=== PATIENT | female | born 1995 | race Caucasian/White ===

== ENCOUNTER 2020-04-19 10:48 | Emergency (ER) | payer BC ==
--- NOTE | 2020-04-19 11:03 | ER Document Report ---
ED Medical Screen (RME) - General Chief Complaint: Vag Bleeding, +preg <12wks Stated Complaint: ABDOMINAL PAIN/BLEEDING/ 15 WKS Time Seen by Provider: 04/19/20 10:58 Primary Care Provider: NANCY WINSLOW NP [Primary Care Provider] - Follow up as needed Mode of Arrival: Ambulatory Information source: Patient Notes: 24-year-old female presented to ED for subchorionic hemorrhage urine. She states she has had a subchorionic hematoma for the last 2 months. She is about 15 weeks 6 days per 1 para 0. She states she has been bleeding dark blood since this started 2 months ago but today it is a brighter color and she is more concerned. She states she is also having cramping. We will get blood urine and a new transvaginal ultrasound. Patient is alert oriented respirations regular nonlabored speaking in full sentences. I have greeted and performed a rapid initial assessment of this patient. A comprehensive ED assessment and evaluation of the patient, analysis of test results and completion of medical decision making process will be conducted by an additional ED providers. Physical Exam - Vital signs Vitals: Temp Pulse Resp BP Pulse Ox 98.0 F 87 18 125/75 97 04/19/20 10:53 04/19/20 10:53 04/19/20 10:53 04/19/20 10:53 04/19/20 10:53 Course - Vital Signs Vital signs: Temp Pulse Resp BP Pulse Ox 98.0 F 87 18 125/75 97 04/19/20 10:53 04/19/20 10:53 04/19/20 10:53 04/19/20 10:53 04/19/20 10:53 Doctor's Discharge - Discharge Referrals: NANCY WINSLOW NP [Primary Care Provider] - Follow up as needed
--- NOTE | 2020-04-19 11:25 | ER Document Report ---
ED GI/ - General Chief Complaint: Vaginal Bleeding Stated Complaint: ABDOMINAL PAIN/BLEEDING/ 15 WKS Time Seen by Provider: 04/19/20 10:58 Primary Care Provider: NANCY WINSLOW NP [Primary Care Provider] - Follow up as needed Mode of Arrival: Ambulatory Notes: HPI: 24-year-old female G1, P0 at 16 weeks by ultrasound who presents with 1 2 months of some intermittent vaginal bleeding. She was personally seen and evaluated at [facility] x2. She was told that she had a Vlad subchorionic hemorrhage. Patient states she started to have some cramping in the suprapubic region yesterday with no aggravating or relieving factors. No radiation. She states some bright red vaginal bleeding today without clots. No dysuria or fevers. She denies any lightheadedness or dizziness. ROS: See HPI All other review of systems reviewed and otherwise negative Reviewed vital signs and nursing note as charted by RN. PHYSICAL EXAM: CONSTITUTIONAL: Alert and oriented and responds appropriately to questions. Well-appearing; well-nourished HEAD: Normocephalic; atraumatic EYES: Clear is not pale ENT: Normal nose; no rhinorrhea; moist mucous membranes; pharynx without lesions noted NECK: Supple without meningismus; non-tender; no cervical lymphadenopathy, no masses CARD: Regular rate and rhythm; no murmurs; symmetric distal pulses RESP: Normal chest excursion without splinting or tachypnea; breath sounds clear and equal bilaterally ABD/GI: Normal bowel sounds; nontender to deep palpation of all 4 quadrants of the abdomen; no palpable masses. Elevated BMI BACK: The back appears normal and is non-tender to palpation EXT: Normal ROM in all joints; non-tender to palpation; no edema SKIN: No acute lesions noted NEURO: CN 2-12 intact; 5/5 bilateral upper and lower extremity strength with sensation intact to light touch PSYCH: The patient's mood and manner are appropriate. Grooming and personal hygiene are appropriate. - Related Data Allergies/Adverse Reactions: No Known Allergies Allergy (Verified 04/19/20 11:07) Past Medical History - General Information source: Patient - Social History Smoking Status: Never Smoker Family History: Reviewed & Not Pertinent Physical Exam - Vital signs Vitals: Temp Pulse Resp BP Pulse Ox 98.0 F 87 18 125/75 97 04/19/20 10:53 04/19/20 10:53 04/19/20 10:53 04/19/20 10:53 04/19/20 10:53 Course - Re-evaluation Re-evalutation: 04/19/20 11:25 Given the above history and physical we will obtain a RhoGam evaluation as well as a transvaginal ultrasound, hemoglobin level, urine, quantitative hCG. I would like to evaluate for the possibility of ectopic , molar , intrauterine demise, or with normal vaginal bleeding. 04/19/20 13:25 Labs as recorded. Patient is a be positive. IUP on ultrasound. No lightheadedness or dizziness. Hemoglobin is stable. I did call the covering SURVEY MANAGER for the patient's group who states he will see the patient in the clinic in a week. - Vital Signs Vital signs: Temp Pulse Resp BP Pulse Ox 98.0 F 87 18 125/75 97 04/19/20 10:53 04/19/20 10:53 04/19/20 10:53 04/19/20 10:53 04/19/20 10:53 - Laboratory Result Diagrams: 04/19/20 11:46 04/19/20 11:46 Laboratory results interpreted by me: 04/19/20 04/19/20 11:46 11:46 Sodium 136.3 L BUN 4 L Creatinine 0.42 L Beta HCG, Quant 40394.00 H Urine Blood LARGE H Urine Urobilinogen 2.0 H Discharge - Discharge Clinical Impression: Vaginal bleeding affecting early Condition: Good Disposition: HOME, SELF-CARE Additional Instructions: Come back immediately for any pain, excessive bleeding, lightheadedness or dizziness, fevers or vomiting, or any other acute problems. Please follow-up with the SURVEY MANAGER in 1 week as discussed. Referrals: NANCY WINSLOW, YEFRI [Primary Care Provider] - Follow up as needed
[2020-04-19 12:12] LABS: ABSOLUTE LYMPHOCYTES (AUTO) 1.8 10^3/uL (0.5-4.7); ABSOLUTE MONOCYTES (AUTO) 0.5 10^3/uL (0.1-1.4); APPEARANCE,URINE CLEAR; BASOPHILS % (AUTO) 0.3 % (0-2); BILIRUBIN,URINE NEGATIVE (NEGATIVE); COLOR,URINE YELLOW; EOSINOPHILS % (AUTO) 0.2 % (0-6); GLUCOSE, URINE NEGATIVE (NEGATIVE); HEMATOCRIT 37.2 % (36.0-47.0); HEMOGLOBIN 13.1 g/dL (12.0-15.5); KETONES,URINE NEGATIVE (NEGATIVE); LEUKOCYTE ESTERASE,URINE NEGATIVE (NEGATIVE); LYMPHOCYTES % (AUTO) 24.1 % (13-45); MEAN CORPUSCULAR HEMOGLOBIN 30.6 pg (27.0-33.4); MEAN CORPUSCULAR HGB CONC 35.3 g/dL (32.0-36.0); MEAN CORPUSCULAR VOLUME 87 fl (80-97); MONOCYTES % (AUTO) 6.8 % (3-13); NITRITE,URINE NEGATIVE (NEGATIVE); PLATELET COUNT 163 10^3/uL (150-450); PROTEIN,URINE NEGATIVE (NEGATIVE); RED BLOOD COUNT 4.29 10^6/uL (3.72-5.28); RED CELL DISTRIBUTION WIDTH 13.4 % (11.5-14.0); SEGMENTED NEUTROPHILS % (AUTO) 68.6 % (42-78); TOTAL CELLS COUNTED % (AUTO) 100 %; URINE SPECIFIC GRAVITY 1.013; WHITE BLOOD COUNT 7.3 10^3/uL (4.0-10.5)
--- NOTE | 2020-04-19 12:36 | RADIOLOGY REPORT (SQ) ---
EXAM DESCRIPTION: U/S OB 14+ TRNABD 1GES W/O DOP IMAGES COMPLETED DATE/TIME: 04/19/2020 10:49 am REASON FOR STUDY: History subchorionic bleed vaginal bleeding crampi COMPARISON: None. TECHNIQUE: Static and Dynamic grayscale imaging performed of gravid uterus using transabdominal appr oach. Additional selected color Doppler and spectral images recorded. All stored on PACS. LIMITATIONS: None. FINDINGS: FETUSES SEEN:1 EGA: 16 weeks 0 days Calculated using BPD,FL,HC,AC documented on images. No discrepancy with clinica l dates. ABEL: 10/04/2020 EFW: 139 g +/-20 1 g PERCENTILE: 53rd percentile LVP: 2.6 cm PLACENTA: Anterior, normal appearance. No evidence of abruption. GRADE: I PRESENTATION: Cephalic. ANATOMY: HEART RATE: 147 beats per minute. Limited anatomic evaluation due to early gestational age. MATERNAL ADNEXA: Maternal ovaries not visualized. CERVICAL LENGTH: 2.9 cm Closed. OTHER: No other significant finding. IMPRESSION: Single live intrauterine . ESTIMATED GESTATIONAL AGE 16 weeks 0 days Trimester of : Second trimester - 13 weeks 1 day to 27 weeks 6 days. TECHNICAL DOCUMENTATION: JOB ID: [id number] 2010 [employer]- All Rights Reserved Reading location - IP/workstation name: [email or web address]
[2020-04-19 12:37] LABS: ALBUMIN 3.9 g/dL (3.5-5.0); ALKALINE PHOSPHATASE 51 U/L (38-126); ANION GAP 8 (5-19); ASPARTATE AMINO TRANSFERASE 32 U/L (14-36); BILIRUBIN,DIRECT 0.2 mg/dL (0.0-0.4); BILIRUBIN,TOTAL 0.6 mg/dL (0.2-1.3); BLOOD UREA NITROGEN 4 mg/dL (7-20); CALCIUM 9.5 mg/dL (8.4-10.2); CARBON DIOXIDE 22 mmol/L (22-30); CHLORIDE 106 mmol/L (98-107); GLUCOSE 88 mg/dL (75-110); TOTAL PROTEIN 6.7 g/dL (6.3-8.2)
[2020-04-19 14:04] VITALS: BP 120/76
== END 2020-04-19 14:03 | disposition home or self-care (01) ==
LOC: ER 10:48
DX: O20.9 Hemorrhage in early pregnancy, unspecified (principal); Z3A.16 16 weeks gestation of pregnancy
CPT/HCPCS: 36415; 76805; 80053; 81001; 84702; 85025; 86900; 86901; 87086; 99284

== ENCOUNTER 2020-04-30 22:20 | Emergency (ER) | payer BC ==
--- NOTE | 2020-04-30 23:12 | ER Document Report ---
ED Medical Screen (RME) - General Chief Complaint: Vaginal Bleeding Stated Complaint: VAGINAL BLEEDING/PREG 17 WEEKS Time Seen by Provider: 04/30/20 23:00 Primary Care Provider: NANCY WINSLOW NP [Primary Care Provider] - Follow up as needed Mode of Arrival: Ambulatory Information source: Patient Notes: HPI; 25-year-old female 16 weeks 1 presents to the emergency room with sudden onset of vaginal bleeding tonight. Patient has a history of a subchorionic hematoma was seen here April 19 for vaginal bleeding but had a normal ultrasound. States that she did follow-up with her OB who confirmed that her ultrasound was normal. Patient states she was doing fine until tonight when she felt a sudden "pop" and a gush of blood. Patient states she is still consistently bleeding. PE: Alert and oriented x3. Lungs: Clear to auscultation without rales, rhonchi, wheezes. Heart: Regular rate rhythm without murmurs, rubs, gallops. I have greeted and performed a rapid initial assessment of this patient. A comprehensive ED assessment and evaluation of the patient, analysis of test results and completion of the medical decision making process will be conducted by additional ED providers. I have specifically instructed the patient or family members with the patient to immediately return to any nursing staff should anything change in the patient's condition or with their chief complaint. TRAVEL OUTSIDE OF THE [place] IN LAST 30 DAYS: No - Related Data Allergies/Adverse Reactions: No Known Allergies Allergy (Verified 04/30/20 22:57) Past Medical History - Social History Frequency of alcohol use: None Drug Abuse: None Physical Exam - Vital signs Vitals: Temp Pulse Resp BP Pulse Ox 97.9 F 87 16 133/88 H 99 04/30/20 22:47 04/30/20 22:47 04/30/20 22:47 04/30/20 22:47 04/30/20 22:47 Course - Vital Signs Vital signs: Temp Pulse Resp BP Pulse Ox 97.9 F 87 16 133/88 H 99 04/30/20 22:47 04/30/20 22:47 04/30/20 22:47 04/30/20 22:47 04/30/20 22:47 Doctor's Discharge - Discharge Referrals: NANCY WINSLOW NP [Primary Care Provider] - Follow up as needed
--- NOTE | 2020-05-01 00:35 | RADIOLOGY REPORT (SQ) ---
EXAM DESCRIPTION: OB ultrasound. CLINICAL HISTORY: 25 years Female; vaginal bleeding TECHNIQUE: Transabdominal obstetrical ultrasound was performed. COMPARISON: OB ultrasound dated April 19, 2020. FINDINGS: Number of fetuses: Single position: Variable Amniotic fluid:Adequate Cervix:Closed. 4.1 cm. Placenta: Anterior. The lower margin of the placenta is approximately 1.3 cm from the internal cervical os. There is heterogeneous, hypoechoic material present along the cervical os which may represent a small amount of clot. There is no evidence of abruption. HR: 140 bpm Biometry: BPD: 3.72 cm, 17 weeks three days, 47th percentile HC: 14.24 cm, 17 weeks four days, 45th percentile AC: 12.07 cm, 17 weeks five days, 68th percentile FL: 2.57 cm, 17 weeks six days, 59th percentile EFW: 208 g HC/AC: 1.18 Composite Gestational Age: 17 weeks five days. Estimated delivery date of 10/03/2020. This correlates with the clinical age. IMPRESSION: 1. Single living intrauterine in variable presentation. 2. Complex area at the internal cervical canal which may represent debris and clot. The source of bleeding is unclear. There is no definitive evidence of abruption.
[2020-05-01 00:40] LABS: ABSOLUTE LYMPHOCYTES (AUTO) 2.5 10^3/uL (0.5-4.7); ABSOLUTE MONOCYTES (AUTO) 0.7 10^3/uL (0.1-1.4); ABSOLUTE NEUT (AUTO) 5.2 10^3/uL (1.7-8.2); BASOPHILS % (AUTO) 0.3 % (0-2); EOSINOPHILS % (AUTO) 0.4 % (0-6); HEMOGLOBIN 12.5 g/dL (12.0-15.5); LYMPHOCYTES % (AUTO) 29.8 % (13-45); MEAN CORPUSCULAR HEMOGLOBIN 30.6 pg (27.0-33.4); MEAN CORPUSCULAR HGB CONC 34.7 g/dL (32.0-36.0); MEAN CORPUSCULAR VOLUME 88 fl (80-97); MONOCYTES % (AUTO) 8.1 % (3-13); PLATELET COUNT 178 10^3/uL (150-450); RED BLOOD COUNT 4.07 10^6/uL (3.72-5.28); SEGMENTED NEUTROPHILS % (AUTO) 61.4 % (42-78); TOTAL CELLS COUNTED % (AUTO) 100 %; WHITE BLOOD COUNT 8.5 10^3/uL (4.0-10.5)
[2020-05-01 00:53] LABS: ALBUMIN 3.5 g/dL (3.5-5.0); ALKALINE PHOSPHATASE 51 U/L (38-126); ANION GAP 9 (5-19); ASPARTATE AMINO TRANSFERASE 49 U/L (14-36); BILIRUBIN,DIRECT 0.2 mg/dL (0.0-0.4); BILIRUBIN,TOTAL 0.4 mg/dL (0.2-1.3); BLOOD UREA NITROGEN 6 mg/dL (7-20); CALCIUM 9.3 mg/dL (8.4-10.2); CARBON DIOXIDE 22 mmol/L (22-30); CHLORIDE 105 mmol/L (98-107); GLUCOSE 89 mg/dL (75-110); POTASSIUM 3.8 mmol/L (3.6-5.0); TOTAL PROTEIN 6.3 g/dL (6.3-8.2)
--- NOTE | 2020-05-01 05:20 | ER Document Report ---
ED General - General Chief Complaint: Vaginal Bleeding Stated Complaint: VAGINAL BLEEDING/PREG 17 WEEKS Time Seen by Provider: 04/30/20 23:00 Primary Care Provider: NANCY WINSLOW NP [NURSE PRACTITIONER] - Follow up as needed Mode of Arrival: Ambulatory TRAVEL OUTSIDE OF THE [place] IN LAST 30 DAYS: No - HPI Notes: Patient is a 25-year-old female, at approximately 17 weeks gestation who presents emergency department for evaluation of vaginal bleeding. She states that she has had bright red vaginal bleeding intermittently pretty much through her entire . She has been seen twice at [facility]. She is seen by the women's clinic here at [place]. She states that she has used 4 pads over the last 6 to 7 hours. She has cramping in her lower abdomen, low back pain as well. No urinary symptoms. - Related Data Allergies/Adverse Reactions: No Known Allergies Allergy (Verified 04/30/20 22:57) Home Medications: vitamin Past Medical History - General Information source: Patient - Social History Smoking Status: Never Smoker Frequency of alcohol use: None Drug Abuse: None Family History: Reviewed & Not Pertinent - Medical History Medical History: Negative Past Surgical History: Reports: Other - Right lower leg amputation Review of Systems - Review of Systems Constitutional: No symptoms reported EENT: No symptoms reported Cardiovascular: No symptoms reported Respiratory: No symptoms reported Gastrointestinal: No symptoms reported Genitourinary: No symptoms reported Female Genitourinary: See HPI Musculoskeletal: No symptoms reported Skin: No symptoms reported Neurological/Psychological: No symptoms reported -: Yes All other systems reviewed and negative Physical Exam - Vital signs Vitals: Temp Pulse Resp BP Pulse Ox 97.9 F 87 16 133/88 H 99 04/30/20 22:47 04/30/20 22:47 04/30/20 22:47 04/30/20 22:47 04/30/20 22:47 - Notes Notes: Vital signs reviewed, please refer to chart. Head is normocephalic, atraumatic. Pupils equal round, reactive to light. Neck is supple without meningismus. Heart is regular rate and rhythm. Lungs are clear to auscultation bilaterally. Abdomen is gravid, nontender, normoactive bowel sounds throughout. Extremities without cyanosis, clubbing. Posterior calves are nontender. Peripheral pulses are equal. Skin is warm and dry. Patient is awake, alert, neurological exam is nonfocal. Course - Re-evaluation Re-evalutation: 05/01/20 05:17 Patient presents to emergency department for evaluation. She was initially seen through triage. Ultrasound shows some bleeding in the lower aspect of the uterus, no obvious source. Her placenta does not show any signs of abruption. Intrauterine with normal heart tones. Patient is comfortable here. She states she is going to follow-up with her OB today. She is offered Tylenol and refuses. Her blood type is Rh+, so no RhoGam is indicated. She is to follow-up with OB, return to the ED with worsening or new concerning symptoms of any sort. 05/01/20 06:06 Urinalysis unremarkable. - Vital Signs Vital signs: Temp Pulse Resp BP Pulse Ox 98.4 F 84 16 117/66 99 05/01/20 05:31 05/01/20 05:31 05/01/20 05:31 05/01/20 05:31 05/01/20 05:31 - Laboratory Result Diagrams: 05/01/20 00:31 05/01/20 00:31 Laboratory results interpreted by me: 05/01/20 05/01/20 00:31 05:08 Sodium 136.2 L BUN 6 L Creatinine 0.43 L AST 49 H ALT 54 H Beta HCG, Quant 6791.70 H Urine Blood LARGE H - Diagnostic Test Radiology reviewed: Reports reviewed Radiology results interpreted by me: 05/01/20 05:18 Obstetrics Ultrasound 04/30/20 23:03 IMPRESSION: 1. Single living intrauterine in variable presentation. 2. Complex area at the internal cervical canal which may represent debris and clot. The source of bleeding is unclear. There is no definitive evidence of abruption. Discharge - Discharge Clinical Impression: Second trimester bleeding Condition: Stable Disposition: HOME, SELF-CARE Instructions: Bleeding During Early ([facility]) Additional Instructions: Please follow-up with your LINE INSTALLATION SUPERVISOR this week. Continue your vitamins at home. Return to the emergency department for worsening or new concerning symptoms of any sort. Referrals: NANCY WINSLOW, ACREAGE REPORTER [NURSE PRACTITIONER] - Follow up as needed
[2020-05-01 05:35] VITALS: BP 117/66
[2020-05-01 05:50] LABS: APPEARANCE,URINE CLEAR; BILIRUBIN,URINE NEGATIVE (NEGATIVE); COLOR,URINE YELLOW; GLUCOSE, URINE NEGATIVE (NEGATIVE); KETONES,URINE NEGATIVE (NEGATIVE); LEUKOCYTE ESTERASE,URINE NEGATIVE (NEGATIVE); NITRITE,URINE NEGATIVE (NEGATIVE); PROTEIN,URINE NEGATIVE (NEGATIVE); URINE SPECIFIC GRAVITY 1.005; UROBILINOGEN,URINE NEGATIVE mg/dL (<2.0)
== END 2020-05-01 06:13 | disposition home or self-care (01) ==
LOC: ER 22:20
DX: O46.92 Antepartum hemorrhage, unspecified, second trimester (principal); O26.892 Other specified pregnancy related conditions, second trimester; R10.30 Lower abdominal pain, unspecified; O99.891 Other specified diseases and conditions complicating pregnancy; M54.5 Low back pain; Z79.899 Other long term (current) drug therapy; Z67.90 Unspecified blood type, Rh positive; Z3A.00 Weeks of gestation of pregnancy not specified
CPT/HCPCS: 36415; 76815; 80053; 81001; 84702; 85025; 99284

== ENCOUNTER 2020-05-11 21:28 | Emergency (ER) | payer BC ==
--- NOTE | 2020-05-11 21:48 | ER Document Report ---
ED Medical Screen (RME) - General Chief Complaint: OB Problem (<20wks) Stated Complaint: SEVERE VAGINAL FLUID, CRAMPS Time Seen by Provider: 05/11/20 21:32 Information source: Patient Notes: Patient presents 19 weeks G1, P0. Patient states that she has placenta previa and had been bleeding for 10 weeks up until last week. Patient states she has had occasional brown discharge. Patient states that since yesterday she has been having some clear fluid leaking. Patient is uncertain if this is incontinence of urine or if she may be leaking amniotic fluid. Patient states that earlier this evening she had vaginal pain, back pain and lower abdominal pain. Patient presently denies any pain symptoms. I have greeted and performed a rapid initial assessment of this patient. A comprehensive ED assessment and evaluation of the patient, analysis of test results and completion of the medical decision making process will be conducted by additional ED providers. TRAVEL OUTSIDE OF THE [place] IN LAST 30 DAYS: No - Related Data Allergies/Adverse Reactions: No Known Allergies Allergy (Verified 04/30/20 22:57) Past Medical History Past Surgical History: Reports: Other - Right lower leg amputation Physical Exam - Vital signs Vitals: Temp Pulse Resp BP Pulse Ox 98.1 F 94 17 136/90 H 99 05/11/20 21:32 05/11/20 21:32 05/11/20 21:32 05/11/20 21:32 05/11/20 21:32 - General General appearance: Appears well, Alert In distress: None Course - Vital Signs Vital signs: Temp Pulse Resp BP Pulse Ox 98.1 F 94 17 136/90 H 99 05/11/20 21:32 05/11/20 21:32 05/11/20 21:32 05/11/20 21:32 05/11/20 21:32
[2020-05-11 22:18] LABS: APPEARANCE,URINE SLIGHTLY-CLOUDY; BILIRUBIN,URINE NEGATIVE (NEGATIVE); COLOR,URINE STRAW; GLUCOSE, URINE NEGATIVE (NEGATIVE); KETONES,URINE NEGATIVE (NEGATIVE); LEUKOCYTE ESTERASE,URINE NEGATIVE (NEGATIVE); NITRITE,URINE NEGATIVE (NEGATIVE); PROTEIN,URINE NEGATIVE (NEGATIVE); URINE SPECIFIC GRAVITY 1.002; UROBILINOGEN,URINE NEGATIVE mg/dL (<2.0)
[2020-05-11 22:20] LABS: ANION GAP 8 (5-19); BLOOD UREA NITROGEN 4 mg/dL (7-20); CALCIUM 9.7 mg/dL (8.4-10.2); CARBON DIOXIDE 24 mmol/L (22-30); CHLORIDE 104 mmol/L (98-107); GLUCOSE 105 mg/dL (75-110); POTASSIUM 3.7 mmol/L (3.6-5.0)
[2020-05-11 22:33] LABS: ABSOLUTE LYMPHOCYTES (AUTO) 2.8 10^3/uL (0.5-4.7); ABSOLUTE MONOCYTES (AUTO) 0.7 10^3/uL (0.1-1.4); ABSOLUTE NEUT (AUTO) 6.5 10^3/uL (1.7-8.2); BASOPHILS % (AUTO) 0.3 % (0-2); EOSINOPHILS % (AUTO) 0.3 % (0-6); HEMATOCRIT 38.4 % (36.0-47.0); HEMOGLOBIN 13.3 g/dL (12.0-15.5); LYMPHOCYTES % (AUTO) 27.3 % (13-45); MEAN CORPUSCULAR HEMOGLOBIN 30.7 pg (27.0-33.4); MEAN CORPUSCULAR HGB CONC 34.6 g/dL (32.0-36.0); MEAN CORPUSCULAR VOLUME 89 fl (80-97); MONOCYTES % (AUTO) 7.3 % (3-13); PLATELET COUNT 187 10^3/uL (150-450); RED BLOOD COUNT 4.33 10^6/uL (3.72-5.28); RED CELL DISTRIBUTION WIDTH 13.6 % (11.5-14.0); SEGMENTED NEUTROPHILS % (AUTO) 64.8 % (42-78); TOTAL CELLS COUNTED % (AUTO) 100 %; WHITE BLOOD COUNT 10.1 10^3/uL (4.0-10.5)
--- NOTE | 2020-05-11 23:05 | RADIOLOGY REPORT (SQ) ---
EXAM DESCRIPTION: US FOLLOW UP COMPLETED DATE/TME: 05/11/2020 21:39 CLINICAL HISTORY: 25 years, Female, vag d/c, pelvic/low back pain COMPARISON: Prior ultrasound dated 05/01/2020 TECHNIQUE: Axial 2-D grayscale images of the pelvis were acquired. Doppler was utilized. LIMITATIONS: None. FINDINGS: Cervix is closed, measuring 3.2 cm in length. Single live intrauterine is identified with measurements as follows: Biparietal diameter: 4.01 cm Head circumference: 16.10 cm Abdominal circumference: 14.92 cm Femoral length: 3.02 cm Estimated weight: 304 g Estimated date of delivery 10/04/2020 Estimated gestational age: 19 weeks and 1 day heart rate: 135 bpm Placenta is anterior, grade one. The inferior edge is located 4.6 cm from the cervical os. presentation is breech Largest vertical pocket of amniotic fluid is 4.0 cm. Echogenic debris is noted about the amniotic sac. A small area of hypoechogenicity is noted about the periphery of the gestational sac measuring 3.1 x 0.9 x 3.0 cm in size. IMPRESSION: Single live intrauterine , as above described. Small area of hypoechogenicity about the periphery of the gestational sac measuring 3.1 x 0.9 x 3.0 cm in size, suspicious for a small perigestational hematoma. Recommend continued surveillance to document resolution. copyright 2010 [employer]- All Rights Reserved
--- NOTE | 2020-05-12 02:43 | PDOC CONSULTATION ---
Consultation Consult Date: 05/12/20 Provider Consulted: CATA PACHECO Consult reason:: Vaginal exam History of Present Illness Admission Date/PCP: TWAN STALLWORTH MD History of Present Illness: BARTOLO MONTOYA is a 25 year old female G1 at 19 wks EGA with c/o wetness on panties for two days. States is clear. No odor. No blood. No gushing of fluid. 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 It appears previa has resolved. THere is area of hematoma noted which is likely associated with resolved previa. THere is fluid with MVP of 4 cm. IUP viable with good FHT noted Social History Smoking Status: Never Smoker Family History Family History: Reviewed & Not Pertinent Parental Family History Reviewed: Yes Children Family History Reviewed: Yes Sibling(s) Family History Reviewed.: Yes Medication/Allergy Allergies/Adverse Reactions: No Known Allergies Allergy (Verified 04/30/20 22:57) Physical Exam - Physical Exam Vital Signs: Temp Pulse Resp BP Pulse Ox 98.1 F 94 17 136/90 H 99 05/11/20 21:32 05/11/20 21:32 05/11/20 21:32 05/11/20 21:32 05/11/20 21:32 General appearance: PRESENT: no acute distress, cooperative Respiratory exam: PRESENT: clear to auscultation sharon Cardiovascular exam: PRESENT: RRR, +S1, +S2 GI/Abdominal exam: PRESENT: normal bowel sounds, soft Extremities exam: PRESENT: other - 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 ABSENT: cyanosis, rash - Gynecological Exam Labia: normal Urethra: normal Introitus: normal Perineum: normal Vagina: normal - NO fluid in vaginal vault. There is small amount of brown thick vaginal discharge adherent to the iniguez. Had patient cough while visualizing her closed cervix and NO fluid noted to fern test Result Laboratory Results: 05/11/20 21:50 05/11/20 21:50 05/11/20 05/11/20 05/11/20 21:50 21:50 21:50 WBC 10.1 RBC 4.33 Hgb 13.3 Hct 38.4 MCV 89 MCH 30.7 MCHC 34.6 RDW 13.6 Plt Count 187 Seg Neutrophils % 64.8 Sodium 136.1 L Potassium 3.7 Chloride 104 Carbon Dioxide 24 Anion Gap 8 BUN 4 L Creatinine 0.52 Est GFR ( Amer) > 60 Glucose 105 Calcium 9.7 Urine Color STRAW Urine Appearance SLIGHTLY-CLOUDY Urine pH 7.0 Ur Specific [place] 1.002 Urine Protein NEGATIVE Urine Glucose (UA) NEGATIVE Urine Ketones NEGATIVE Urine Blood MODERATE H Urine Nitrite NEGATIVE Ur Leukocyte Esterase NEGATIVE Urine WBC (Auto) 6 Urine RBC (Auto) 1 Impressions: Obstetrics Ultrasound 05/11/20 21:39 IMPRESSION: Single live intrauterine , as above described. Small area of hypoechogenicity about the periphery of the gestational sac measuring 3.1 x 0.9 x 3.0 cm in size, suspicious for a small perigestational hematoma. Recommend continued surveillance to document resolution. copyright 2010 [employer]- All Rights Reserved Assessment & Plan - Diagnosis (1) Clear vaginal discharge Is this a current diagnosis for this admission?: Yes - Time Critical Time spent with patient: Less than 15 minutes Anticipated Discharge Disposition: Home, Self Care Anticipated Discharge Timeframe: within 24 hours Disposition: stable - Plan Summary Plan Summary: 25 yo G1 with 19 wk IUP and clear vaginal discharge -Exam of vaginal vault negative for any fluid -US showed viable IUP with flulid -MVP 4 cm NO PREVIA presently -d/c with patient likely urine or perspiration -No previa but would still recommend pelvic rest until next OB visit\ -SHE does not need to be on bed rest. -F/u with OB at regular visit on 05/15/20
--- NOTE | 2020-05-12 03:27 | ER Document Report ---
ED General - General Chief Complaint: OB Problem (<20wks) Stated Complaint: SEVERE VAGINAL FLUID, CRAMPS Time Seen by Provider: 05/11/20 21:32 Primary Care Provider: TWAN STALLWORTH MD [Primary Care Provider] - Follow up as needed Notes: 22-year-old female approximately 19 weeks gestational age presents with a pproximately 2 days of clear fluid leaking from vagina. Patient says that she has noticed her that her underwear are wet repeatedly and called on-call doctor at [facility] who referred her to the ED. Patient otherwise feels well. Current has been complicated by placenta previa and subchorionic hematoma, patient was instructed to be on bedrest. Patient endorses a scant amount of dark blood from vagina which she has had intermittently throughout . Patient denies any other discharge, pelvic pain, red blood, urinary symptoms, flank pain, dizziness, syncope, bleeding diatheses, trauma TRAVEL OUTSIDE OF THE [place] IN LAST 30 DAYS: No - Related Data Allergies/Adverse Reactions: No Known Allergies Allergy (Verified 04/30/20 22:57) Past Medical History - General Information source: Patient - Social History Smoking Status: Never Smoker Frequency of alcohol use: None Drug Abuse: None Family History: Reviewed & Not Pertinent Patient has homicidal ideation: No Past Surgical History: Reports: Other - Right lower leg amputation Review of Systems - Review of Systems Notes: REVIEW OF SYSTEMS: CONSTITUTIONAL : Denies fever, chills, or sweats. EENT: Denies recent cold/sinus symptoms, denies throat pain CARDIOVASCULAR: Denies chest pain, CARLO RESPIRATORY: Denies cough, denies shortness of breath. GASTROINTESTINAL: Denies abdominal pain, nausea/vomiting. GENITOURINARY: Denies difficulty urinating, painful urination. FEMALE GENITOURINARY: + abnormal vaginal bleeding, vaginal discharge. MUSCULOSKELETAL: Denies neck pain, back pain. SKIN: Denies rash or skin lesions. HEMATOLOGIC : Denies easy bruising or bleeding. LYMPHATIC: Denies swollen, enlarged glands. NEUROLOGICAL: Denies headache, denies change in gait. PSYCHIATRIC: Denies anxiety or stress or depression. Physical Exam - Vital signs Vitals: Temp Pulse Resp BP Pulse Ox 98.1 F 94 17 136/90 H 99 05/11/20 21:32 05/11/20 21:32 05/11/20 21:32 10/25/20 21:32 05/11/20 21:32 - Notes Notes: PHYSICAL EXAMINATION: GENERAL: Well-appearing, well-nourished and in no acute distress. HEAD: Atraumatic, normocephalic. EYES: Pupils equal round and appropriate constriction, sclera anicteric, conjunctiva are normal. ENT: nares patent, moist mucous membranes. NECK: Normal range of motion, supple without lymphadenopathy LUNGS: Normal respiratory rate and effort, speaking in full sentences HEART: Regular rate, no JVD, no lower extremity edema ABDOMEN: Soft, nontender, no guarding, no masses, no CVAT EXTREMITIES: Normal range of motion, no pitting or edema. No cyanosis. Right leg BKA NEUROLOGICAL: Awake, alert, conversing appropriately, moves all extremities spontaneously. PSYCH: Normal mood, normal affect. SKIN: Warm, Dry, normal turgor, no rashes or lesions noted. Course - Re-evaluation Re-evalutation: 05/12/20 03:23 Rule out amniotic fluid leak, no signs of infection, scant vaginal bleeding but patient previously had Rh+ confirmed here. Did not perform pelvic exam because of concern for reviewed pelvic exams with placenta previa history so I deferred it to [facility] exam. Dr. Delgado came and examined patient and did not have any liquid from os and placenta previa for some resolved on ultrasound. Maximum vertical pocket [address] Delgado has recommended follow-up outpatient in 3 days as patient already has scheduled. Discussed this with patient and patient given return to ED precautions which she demonstrated understanding of. Incidental hematuria on UA likely secondary from scant vaginal bleeding, instructed to follow-up with PCP. - Vital Signs Vital signs: Temp Pulse Resp BP Pulse Ox 98.1 F 94 17 136/90 H 99 05/11/20 21:32 05/11/20 21:32 05/11/20 21:32 05/11/20 21:32 05/11/20 21:32 - Laboratory Result Diagrams: 05/11/20 21:50 05/11/20 21:50 Laboratory results interpreted by me: 05/11/20 05/11/20 21:50 21:50 Sodium 136.1 L BUN 4 L Urine Blood MODERATE H Discharge - Discharge Clinical Impression: Vaginal discharge during in second trimester, Vaginal bleeding before 22 weeks gestation Disposition: HOME, SELF-CARE Additional Instructions: You do not need to be on bed rest, but should be on pelvic rest which means no sexual activity until you are cleared by the media aid. Follow-up as scheduled in 3 days. If you have any heavy bleeding, heavy fluid loss, pelvic pain, fever, or any other worsening or alarming symptoms return to the emergency department immediately. You had blood in your urine which is likely from the blood in your vagina but you should have this checked out by your primary doctor. Follow-up with your primary doctor within 2 weeks. Your blood pressure was 136/90 in the ER today, discussed this with your OB when you follow-up and also with your primary doctor. If you should have any symptoms such as abdominal pain, bruising, yellowing of skin or eyes, headache, chest pain, shortness of breath, body swelling, or any other worsening or alarming symptoms return to the emergency department immediately. Referrals: VALERIA DELGADO MD [ACTIVE PROVISIONAL STAFF] - Follow up in 3-5 days TWAN STALLWORTH MD [Primary Care Provider] - Follow up in 1 week
[2020-05-12 03:43] VITALS: BP 114/73
== END 2020-05-12 03:42 | disposition home or self-care (01) ==
LOC: ER 21:28
DX: O26.892 Other specified pregnancy related conditions, second trimester (principal); N89.8 Other specified noninflammatory disorders of vagina; R31.9 Hematuria, unspecified; O20.9 Hemorrhage in early pregnancy, unspecified; Z3A.00 Weeks of gestation of pregnancy not specified
CPT/HCPCS: 36415; 76805; 80048; 81001; 85025; 99284